=== PATIENT | male | born 1975 | race Caucasian/White ===

== ENCOUNTER 2018-12-04 13:36 | Emergency (ER) | payer SELFPAY ==
[2018-12-04 13:37] VITALS: BP 136/86; PULSE 89; RESP 16; TEMP 36.2; O2SAT 96; BMI 38.2
--- NOTE | 2018-12-04 14:03 | ED.VIS.GEN ---
History of Present Illness Chief Complaint: Rash Informant: Patient Onset: Weeks - 2 Context: Gradual Onset Timing: Continuous Current Severity: Moderate Maximum Severity: Moderate Narrative: Patient was treated for poison zeina for the past week and a half or so, he notices some new rashes. He tells me he has not been effective. He has no difficulty breathing, cough or congestion. Prior similar symptoms: Yes Recent Illness/Hospitalization: Yes Past Medical History - Allergies and Home Meds Allergies/Adverse Reactions: Allergies No Known Allergies Allergy (Verified 12/04/18 13:37) Primary Care Physician: Care Physician,No Primary [Primary Care Provider] - Prior records reviewed: Yes Past Medical History: None Smoking Status: Never smoker Review of Systems General: Denies: Fever Cardiovascular: Denies: Chest pain Respiratory: Denies: Dyspnea, Cough Gastrointestinal: Denies: Nausea, Vomiting Skin: Reports: Rash Neurological: Denies: Weakness Psych: Denies: Anxiety Physical Exam Vital Signs/Narrative: Vital Signs Temp Pulse Resp BP Pulse Ox 12/04/18 13:37 97.2 F L 89 16 136/86 H 96 Inital Vital Signs reviewed: Yes General: Well nourished, Well developed Head: Normocephalic Neck: Supple Cardiovascular: Regular rate, Regular rhythm Respiratory: No distress, CTA bilaterally Abdomen: Soft, Nontender Extremities: - - See skin exam Skin: - - Patient has multiple areas consistent with contact dermatitis on his arms especially the left arm, chest and abdomen. Diagnostic/Tx/Re-eval - Medical Decision Making Patient's clinical presentation is consistent with contact dermatitis I will treat him as such. I will also give him Vistaril, he received IM Kenalog in the ED. ED Disposition - Plan for ED Patient: Disposition: Home or Assisted Living Diagnosis: Contact dermatitis Instructions: Poison Zeina Dermatitis Prescriptions: Hydroxyzine Pamoate [Vistaril] 50 mg PO 4X/DAY PRN PRN #20 cap PRN Reason: Itching Prescription Printed Referrals: Care Physician,No Primary [Primary Care Provider] - 3-5 Days
[2018-12-04] MEDS: hydrOXYzine 50 MG/ML Vial IM (14:17)
[2018-12-04] MEDS: Triamcinolone Acetonide 40 MG/ML Vial IM (14:17)
== END 2018-12-04 14:51 | disposition home or self-care (01) ==
PROVIDERS: Emergency Provider Emergency Medicine
DX: L25.9 Unspecified contact dermatitis, unspecified cause (principal)
CPT/HCPCS: 96372; 99282

== ENCOUNTER 2021-11-22 06:55 | Outpatient (CLI) | payer SELFPAY ==
--- NOTE | 2021-11-22 07:09 | MRI_ITS ---
EXAM: MR LUMBAR SPINE WITHOUT INTRAVENOUS CONTRAST CLINICAL INDICATION: BACK PAIN WITH RADICULOPATHY INTO R LEG TECHNIQUE: Multiplanar and multisequence MR images of the lumbar spine without intravenous contrast. This report was created using [employer] report [employer] technology. COMPARISON: None. FINDINGS: VERTEBRAE: See below. SPINAL CORD: Unremarkable. Normal position and signal intensity of the conus medullaris. SOFT TISSUES: Unremarkable. DISCS/SPINAL CANAL/NEURAL FORAMINA: L1-L2: Unremarkable. Normal disc height and morphology. Normal spinal canal and lateral recesses. Normal neuroforamina. L2-L3: Unremarkable. Normal disc height and morphology. Normal spinal canal and lateral recesses. Normal neuroforamina. L3-L4: Unremarkable. Normal disc height and morphology. Normal spinal canal and lateral recesses. Normal neuroforamina. L4-L5: Moderate facet arthropathy. No significant disc space narrowing. Normal spinal canal and lateral recesses. Normal neuroforamina. L5-S1: Mild disc space narrowing. No disc protrusion. Mild narrowing of the right neural foramen related to vertebral body hypertrophy. Normal spinal canal and lateral recesses. MRI/Spine Lumbar (Routine) IMPRESSION: No evidence of spinal stenosis. Mild narrowing of the right L5-S1 neural foramina. Electronically Signed: Desmond Jama MD at 10:13 EDT ,
== END 2021-11-22 23:59 | disposition home or self-care (01) ==
DX: M54.16 Radiculopathy, lumbar region (principal)
CPT/HCPCS: 72148

== ENCOUNTER → 2023-02-09 | Outpatient (CLI) | payer SELFPAY ==
[2023-02-09 15:30] LABS: PSA,Total - Annual Screen 1.48 ng/mL (0.00-4.00)
== END | disposition home or self-care (01) ==
PROVIDERS: Referring Provider Nurse Practitioner; Visit Provider Nurse Practitioner
DX: Z12.5 Encounter for screening for malignant neoplasm of prostate (principal)
CPT/HCPCS: 36415; 84153; G0103

== ENCOUNTER → 2023-02-19 | Outpatient (CLI) | payer SELFPAY ==
--- NOTE | 2023-02-19 14:29 | CT_ITS ---
STUDY: CT ABDOMEN AND PELVIS WITHOUT CONTRAST REASON FOR EXAM: Male, 48 years old. GROSS HEMATURIA RADIATION DOSAGE (If Supplied By Facility): CTDIvol = ( 20.91 ) mGy, DLP = ( 1111.05 ) mGycm TECHNIQUE: Transaxial images were obtained from the dome of the diaphragm to the symphysis pubis without oral contrast, and without intravenous contrast. Sagittal and coronal images were reconstructed. Individualized dose optimization techniques were used for this CT. COMPARISON: None. FINDINGS: The visualized lung bases are unremarkable. The visualized portions of the heart are within normal limits. Normal liver. Normal gallbladder and extrahepatic biliary system. Normal spleen. Normal pancreas. Normal bilateral adrenal glands. Normal right kidney. Normal left kidney. Normal visualized stomach. Normal small intestine. There is moderate stool in the colon. The appendix is visualized and appears normal. Normal abdominal aorta. Normal inferior vena cava. Normal retroperitoneum. The bladder is partially decompressed. Normal visualized prostate gland. There are bilateral fatty inguinal hernias. There is a minimal umbilical hernia. There are diffuse degenerative changes of the visualized lumbar spine. CT/Abdomen/Pelvis without Cont IMPRESSION: No visualized renal ureteral or bladder calculi. Decompressed appearance of the bladder. Moderate constipation. Electronically Signed: Sona Giles MD at 6:02 EDT ,
== END | disposition home or self-care (01) ==
LOC: CT 14:27
PROVIDERS: Referring Provider Urology; Visit Provider Urology
DX: R31.0 Gross hematuria (principal)
CPT/HCPCS: 74176

== ENCOUNTER → 2023-03-05 | Outpatient (CLI) | payer SELFPAY ==
--- NOTE | 2023-03-05 10:20 | RAD_ITS ---
STUDY: X-RAY - ABDOMEN/PELVIS REASON FOR EXAM: Male, 48 years old. Pain. TECHNIQUE: Single AP view of the abdomen / pelvis on 2 images. COMPARISON: None. FINDINGS: Normal visualized lung bases. Normal bowel gas pattern with air seen to the rectum. No disproportionate dilatation of bowel or free air. The visualized liver, spleen and kidneys are grossly normal in size and morphology. Normal soft tissue structures. Normal visualized osseous structures. RAD/Abdomen Single View IMPRESSION: No acute abnormality of the visualized lower chest, abdomen or pelvis. Electronically Signed: Ector Gonzalez MD at 13:26 EDT ,
== END | disposition home or self-care (01) ==
PROVIDERS: Referring Provider Urology; Visit Provider Urology
DX: M54.9 Dorsalgia, unspecified (principal)
CPT/HCPCS: 74018